=== PATIENT | female | born 2000 | race Caucasian/White ===

== ENCOUNTER 2024-02-17 05:56 | Emergency (ER) | payer SELFPAY ==
[2024-02-17] MEDS ORDERED: Sodium Chloride 0.9% 1,000 ML ONE (06:30)
[2024-02-17] MEDS ORDERED: Dicyclomine 20 MG/2 ML VIAL ONE (06:39)
[2024-02-17] MEDS ORDERED: Haloperidol Lactate 5 MG/ML VIAL ONE (06:39)
[2024-02-17 06:50] LABS: Hematocrit 38.2 % (36.0-47.0); Hemoglobin 11.6 g/dL (12.0-16.0); Mean Corpuscular HGB CONC 30.4 g/dL (32.0-36.0); Mean Corpuscular Hemoglobin 24.6 pg (27.0-31.0); Mean Platelet Volume 6.7 fL (7.4-10.4); Platelet Count 450 10x3/uL (130-400); RBC Distribution Width 15.9 % (11.5-14.5); Red Blood Cell (RBC) Count 4.71 mill/uL (4.20-5.40); White Blood Cell (WBC) Count 20.6 10x3/uL (4.8-10.8)
[2024-02-17 06:57] LABS: Band 7 % (5-11); Lymphocytes 6 % (21-51); MDiff Complete? YES; Manual Diff?? YES; Monocytes 8 % (0-10); Neutrophil 79 % (42-75)
[2024-02-17 06:58] LABS: Anisocytosis SLIGHT = 6-15 cells (100X) (0-5/hpf); Platelet Adequacy Comment Appears Increased; Poikilocytosis SLIGHT = 6-15 cells (100X) (0-5/hpf)
[2024-02-17 06:59] LABS: BHCG - Serum Negative (NEGATIVE); Pregs Control Background? CLEAR/WHITE (CLR/WHITE); Pregs Control Bar Appear? YES (CONTROL BAR)
[2024-02-17 07:02] LABS: ALT (SGPT) 92 U/L (8-55); AST (SGOT) 56 U/L (5-34); Albumin 4.4 g/dL (3.5-5.0); Alkaline Phosphatase 75 U/L (40-110); Anion Gap 18 mmol/L (10-20); BUN (Urea Nitrogen) 14 mg/dL (7.0-18.7); Bilirubin, Total 0.2 mg/dL (0.2-1.2); Calc. Creatinine Clearance 0 mL/min (70-130); Calcium 9.8 mg/dL (7.8-10.44); Carbon Dioxide 20 mmol/L (22-29); Chloride 104 mmol/L (98-107); Estimated GFR 123; Globulin 4.1 g/dL (2.4-3.5); Glucose 147 mg/dL (70-105); Potassium 4.4 mmol/L (3.5-5.1); Protein, Total 8.5 g/dL (6.0-8.3); Sodium 138 mmol/L (136-145)
[2024-02-17 07:39] LABS: Bilirubin Negative (Negative); Blood, Urine Trace (Negative); Clarity Clear (Clear); Glucose, Urine (Dipstick) Negative (Negative); Ketone, Urine Negative (Negative); Leukocyte Negative (Negative); Nitrite Negative (Negative); Protein, Urine (Dipstick) Negative (Neg-Trace); Urobilinogen 0.2 mg/dL (Less than 2); pH, Urine 5.5 (5.0-9.0)
[2024-02-17 07:45] LABS: RBC/HPF 0-3 HPF (0-3); Specific Gravity, Urine 1.022 (1.002-1.036)
[2024-02-17 07:46] LABS: Bacteria/HPF Rare-Few HPF (None Seen); CAUTI Indications for Culture Pelvic or flank pain; Squamous Epithelial 0-3 HPF (0-3); WBC/HPF 0-3 HPF (0-3)
[2024-02-17 07:47] LABS: Urine Culture Reflex No No
== END 2024-02-17 08:07 | disposition home or self-care (01) ==
LOC: MADERS 05:56
DX: R11.2 Nausea with vomiting, unspecified (principal); F17.290 Nicotine dependence, other tobacco product, uncomplicated; Z55.6 Problems related to health literacy
CPT/HCPCS: 80053; 81001; 83690; 84703; 85025; 96361; 96372; 96374; J1630; J7030